=== PATIENT | female | born 1955 | race Caucasian/White ===

== ENCOUNTER 2017-02-09 10:26 | Inpatient (IN) | payer MEDICARE, MEDICAID ==
--- NOTE | 2017-02-09 10:48 | ER Document Report ---
ED Neuro Symptoms/Deficit - General Stated Complaint: RIGHT SIDE PAIN Time Seen by Provider: 02/09/17 10:33 Notes: Patient says that she was asleep and awakened about 2 AM and noted that she was weak on her right side and it did not seem to want to work. She fell back asleep but reawakened at about 5 AM. She tried to get out of the bed and fell because she could not walk due to the weakness of the right side. She also noted that her right face felt weak and numb. Relative says that she did not have any difficulty with her speech. Patient says she feels lightheaded. Said she had a small headache since she awakened this morning. Has not had any loss of consciousness. Still feels unsteady on her feet. Patient supposedly had a stroke about 5 years ago which caused her to have some problem with the vision and she had to wear eye patch for several weeks, but all of her symptoms from that episode had resolved. Patient thought that her symptoms might be due to anxiety as she does have a history of depression with anxiety. TRAVEL OUTSIDE OF THE [place] IN LAST 30 DAYS: No - Related Data Allergies/Adverse Reactions: No Known Allergies Allergy (Verified 02/09/17 10:56) Past Medical History - Social History Smoking Status: Unknown if Ever Smoked Cigarette use (# per day): No Family History: Reviewed & Not Pertinent - Past Medical History Cardiac Medical History: Reports: Hx Hypercholesterolemia, Hx Hypertension Denies: Hx Coronary Artery Disease Neurological Medical History: Reports: Hx Cerebrovascular Accident - See HPI Endocrine Medical History: Denies: Hx Diabetes Mellitus Type 1, Hx Diabetes Mellitus Type 2 Psychiatric Medical History: Reports: Hx Anxiety, Hx Depression Past Surgical History: Reports: Hx Section, Hx Cholecystectomy - Immunizations Hx Diphtheria, Pertussis, Tetanus Vaccination: Yes Review of Systems - Review of Systems Notes: REVIEW OF SYSTEMS: CONSTITUTIONAL : Denies fever. EENT: Denies eye, ear, nose or mouth or throat pain or other symptoms. CARDIOVASCULAR: Denies chest pain. RESPIRATORY: Denies cough, chest congestion, but has felt shortness of breath over the past couple of weeks. GASTROINTESTINAL: Denies abdominal pain or nausea, vomiting, or diarrhea. GENITOURINARY: Denies difficulty or painful urinating, urinary frequency, blood in urine. Patient was diagnosed with a urinary tract infection a couple of weeks ago and treated with a course of antibiotics. She is symptom-free now. MUSCULOSKELETAL: Denies back or neck pain. Denies joint pain or swelling. SKIN: Denies rash or skin lesions. NEUROLOGICAL: Denies LOC or altered mental status. Mild headache since awakening this morning. See HPI. PSYCHIATRIC: Acknowledges anxiety or stress and depression. ALL OTHER SYSTEMS REVIEWED AND NEGATIVE. Physical Exam - Vital signs Interpretation: Hypertensive - 187/92, Other - All other vital signs essentially normal. - Notes Notes: PHYSICAL EXAMINATION: GENERAL: Well-appearing, in no acute distress. Blood pressure modestly elevated HEAD: Atraumatic, normocephalic. No facial asymmetry. EYES: Pupils equal round and reactive to light, extraocular movements intact. ENT: oropharynx clear without exudates. Moist mucous membranes. NECK: Normal range of motion, supple. No carotid bruits heard. LUNGS: Breath sounds clear and equal bilaterally. Patient appears to be short of breath, especially after standing at the bedside. HEART: Regular rate and rhythm without murmurs. ABDOMEN: Soft, nontender. No guarding or rebound. No masses. BACK: No tenderness throughout entire back. EXTREMITIES: Normal range of motion without pain. NEUROLOGICAL: Normal speech. Patient can stand with assistance, but is unsteady on her feet and appears as if she might fall if not kept from doing so by help. Patient's right patellar reflex is decreased or absent while she has a normal, brisk left patellar reflex. Sensation seems to be intact. Patient can move all 4 extremities. Awake, alert, and oriented x3. Cranial nerves normal. PSYCH: Anxious but normal mood, normal affect. SKIN: Warm, dry, no rashes. Course - Re-evaluation Re-evalutation: 02/09/17 14:[address] of the brain showed an attenuated area in the region of the right cerebellum. They recommended an IV contrasted study which I ordered. They feel that this area and the cerebellum is most likely an old infarct. Patient' s chest x-ray shows some atelectasis but no other findings. Lab studies were all essentially normal. Patient continues to complain of feeling weak on the right side. Patient will be admitted for observation. - Laboratory Result Diagrams: 02/09/17 11:48 02/09/17 11:48 - Diagnostic Test Radiology reviewed: Image reviewed, Reports reviewed - CT scan of the brain shows decreased attenuation in the right cerebellum and they recommend an IV contrasted CT of the brain to rule out a pathologic lesion. IV contrasted study is felt to show an old infarct in the cerebellum. Radiology results interpreted by me: 02/09/17 12:06 Chest x-ray shows some basilar atelectasis but otherwise unremarkable. - EKG Interpretation by Ok EKG shows normal: Sinus rhythm Rate: Normal Rhythm: NSR Additional EKG results interpreted by me: 02/09/17 12:07 EKG is normal. Discharge - Discharge Clinical Impression: Stroke Condition: Stable Disposition: ADMITTED OBSERVATION Admitting Provider: Hospitalist Unit Admitted: IMCU Referrals: RITA JACKSON MD [Primary Care Provider] - Follow up as needed
--- NOTE | 2017-02-09 11:24 | RADIOLOGY REPORT (SQ) ---
EXAM DESCRIPTION: CT HEAD WITHOUT COMPLETED DATE/TIME: 02/09/2017 11:09 am REASON FOR STUDY: Numbness and weakness of right side COMPARISON: 02/02/2014 TECHNIQUE: Axial images acquired through the brain without intravenous contrast. Images reviewed wi th bone, brain and subdural windows. Images stored on PACS. All CT scanners at this facility use dose modulation, iterative reconstruction, and/or weight based d osing when appropriate to reduce radiation dose to as low as reasonably achievable (ALARA). [facility]: Dose Right [facility]: CareDose [facility]: Dose Right [facility]: Teradose 4D [facility]: [facility] Lab RADIATION DOSE: CT Rad equipment meets quality standard of care and radiation dose reduction techniq ues were employed. CTDIvol: 64.6 mGy. DLP: 1163 mGy-cm. mGy. LIMITATIONS: None. FINDINGS: VENTRICLES: Normal size and contour. CEREBRUM: No masses. No hemorrhage. No midline shift. No evidence for acute infarction. Normal gra y/white matter differentiation. No areas of low density in the white matter. CEREBELLUM: Vague areas of decreased attenuation right cerebellar hemisphere. Normal variant versus pathologic. EXTRAAXIAL SPACES: No fluid collections. No masses. ORBITS AND GLOBE: No intra- or extraconal masses. Normal contour of globe without masses. CALVARIUM: No fracture. PARANASAL SINUSES: No fluid or mucosal thickening. SOFT TISSUES: No mass or hematoma. OTHER: No other significant finding. IMPRESSION: Vague areas of decreased attenuation right cerebellum. Normal variant versus pathologic . Recommend repeat CT with IV contrast. Study is otherwise unremarkable. EVIDENCE OF ACUTE STROKE: NO. COMMENT: Quality ID # [id number]: Final reports with documentation of one or more dose reduction techniques (e.g., Automated exposure control, adjustment of the mA and/or kV according to patient size, use of iterative reconstruction technique) TECHNICAL DOCUMENTATION: JOB ID: [id number] [employer]- All Rights Reserved
--- NOTE | 2017-02-09 11:41 | RADIOLOGY REPORT (SQ) ---
EXAM DESCRIPTION: CHEST PA/LAT COMPLETED DATE/TIME: 02/09/2017 11:25 am REASON FOR STUDY: Shortness of breath COMPARISON: 02/02/2014 EXAM PARAMETERS: NUMBER OF VIEWS: two views TECHNIQUE: Digital Frontal and Lateral radiographic views of the chest acquired. RADIATION DOSE: NA LIMITATIONS: none FINDINGS: LUNGS AND PLEURA: Linear atelectatic markings seen both lung bases similar to earlier stud y. No developing confluent infiltrates. Chronic elevation right hemidiaphragm. MEDIASTINUM AND HILAR STRUCTURES: No masses or contour abnormalities. HEART AND VASCULAR STRUCTURES: Heart normal size. No evidence for failure. BONES: No acute findings. HARDWARE: None in the chest. OTHER: No other significant finding. IMPRESSION: Linear atelectatic markings both lung bases. Chronic elevation right hemidiaphragm. TECHNICAL DOCUMENTATION: JOB ID: [id number] [employer]- All Rights Reserved
[2017-02-09 11:48] LABS: APPEARANCE,URINE CLEAR; BILIRUBIN,URINE NEGATIVE (NEGATIVE); COLOR,URINE STRAW; GLUCOSE, URINE NEGATIVE (NEGATIVE); KETONES,URINE NEGATIVE (NEGATIVE); LEUKOCYTE ESTERASE,URINE NEGATIVE (NEGATIVE); NITRITE,URINE NEGATIVE (NEGATIVE); PROTEIN,URINE 30 mg/dL (NEGATIVE); URINE SPECIFIC GRAVITY 1.006; UROBILINOGEN,URINE NEGATIVE mg/dL (<2.0)
[2017-02-09] MEDS ORDERED: LORAZEPAM 1 MG TABLET PO ONE (11:59)
[2017-02-09 12:02] LABS: ABSOLUTE EOSINOPHILS # (AUTO) 0.2 10^3/uL (0.0-0.6); ABSOLUTE LYMPHOCYTES (AUTO) 1.5 10^3/uL (0.5-4.7); ABSOLUTE MONOCYTES (AUTO) 0.6 10^3/uL (0.1-1.4); ABSOLUTE NEUT (AUTO) 9.7 10^3/uL (1.7-8.2); BASOPHILS % (AUTO) 0.4 % (0-2); EOSINOPHILS % (AUTO) 1.5 % (0-6); HEMATOCRIT 41.3 % (36.0-47.0); LYMPHOCYTES % (AUTO) 12.5 % (13-45); MEAN CORPUSCULAR HEMOGLOBIN 30.6 pg (27.0-33.4); MEAN CORPUSCULAR HGB CONC 33.9 g/dL (32.0-36.0); MEAN CORPUSCULAR VOLUME 90 fl (80-97); MONOCYTES % (AUTO) 4.9 % (3-13); PLATELET COUNT 272 10^3/uL (150-450); RED BLOOD COUNT 4.57 10^6/uL (3.72-5.28); RED CELL DISTRIBUTION WIDTH 13.6 % (11.5-14.0); SEGMENTED NEUTROPHILS % (AUTO) 80.7 % (42-78); TOTAL CELLS COUNTED % (AUTO) 100 %
[2017-02-09 12:18] LABS: ALANINE AMINOTRANSFERASE 30 U/L (9-52); ALBUMIN 4.5 g/dL (3.5-5.0); ALKALINE PHOSPHATASE 135 U/L (38-126); ANION GAP 12 (5-19); ASPARTATE AMINO TRANSFERASE 42 U/L (14-36); BILIRUBIN,DIRECT 0.2 mg/dL (0.0-0.4); BILIRUBIN,TOTAL 0.7 mg/dL (0.2-1.3); BLOOD UREA NITROGEN 14 mg/dL (7-20); CALCIUM 9.6 mg/dL (8.4-10.2); CARBON DIOXIDE 26 mmol/L (22-30); CHLORIDE 100 mmol/L (98-107); GLUCOSE 122 mg/dL (75-110); POTASSIUM 4.4 mmol/L (3.6-5.0); SODIUM 138.4 mmol/L (137-145); TOTAL PROTEIN 7.2 g/dL (6.3-8.2)
[2017-02-09 12:30] LABS: CREATINE KINASE MB 3.19 ng/mL (<4.55); TROPONIN I 0.016 ng/mL
--- NOTE | 2017-02-09 13:13 | RADIOLOGY REPORT (SQ) ---
EXAM DESCRIPTION: CT HEAD WITH COMPLETED DATE/TIME: 02/09/2017 12:56 pm REASON FOR STUDY: ? Right cerebellar lesion COMPARISON: Noncontrast CT dated 02/09/2017 and 02/02/2014. TECHNIQUE: Axial images acquired through the brain with intravenous contrast. Images reviewed with b one, brain and subdural windows. Images stored on PACS. All CT scanners at this facility use dose modulation, iterative reconstruction, and/or weight based d osing when appropriate to reduce radiation dose to as low as reasonably achievable (ALARA). [facility]: Dose Right [facility]: CareDose [facility]: Dose Right [facility]: Teradose 4D [facility]: [employer]ighters CONTRAST TYPE AND DOSE: contrast/concentration: Isovue 370.00 mg/ml; Total Contrast Delivered: 50.0 ml; Total Saline Delivered: 32.0 ml RENAL FUNCTION: BUN 14 creatinine 0.83. RADIATION DOSE: CT Rad equipment meets quality standard of care and radiation dose reduction techniq ues were employed. CTDIvol: 64.6 mGy. DLP: 1163 mGy-cm.. LIMITATIONS: None. FINDINGS: VENTRICLES: Normal size and contour. CEREBRUM: No masses. No hemorrhage. No midline shift. A few areas of low density in the white matter most likely due to chronic micro-vascular ischemic change. No evidence for acute infarction. No abnor mal enhancement. CEREBELLUM: No masses. No hemorrhage. Wedge-shaped area of decreased attenuation in the right cereb ellar hemisphere. No enhancement. No evidence for acute infarction. EXTRAAXIAL SPACES: Mild age-related involutional change. No fluid collections. No masses. ORBITS AND GLOBE: No intra- or extraconal masses. Normal contour of globe without masses. CALVARIUM: No fracture. PARANASAL SINUSES: No fluid or mucosal thickening. SOFT TISSUES: No mass or hematoma. OTHER: No other significant finding. IMPRESSION: MILD CHRONIC CHANGES OF ATROPHY AND MICROVASCULAR ISCHEMIA. NO ABNORMAL AREAS OF ENHAN CEMENT. WEDGE-SHAPED AREA OF DECREASED ATTENUATION IN THE RIGHT CEREBELLAR HEMISPHERE IS MOST LIKELY DUE TO AN OLD INFARCT. NO DEFINITE ACUTE FINDINGS. EVIDENCE OF ACUTE STROKE: NO. TECHNICAL DOCUMENTATION: JOB ID: [id number]: Final reports with documentation of one or more dose reduction techniques (e.g., Automate d exposure control, adjustment of the mA and/or kV according to patient size, use of iterative recons truction technique) 2010 [employer]- All Rights Reserved
[2017-02-09] MEDS ORDERED: ASPIRIN 81 MG TABLET, CHEWABLE PO ONE (14:07)
[2017-02-09] MEDS ORDERED: LABETALOL HCL INJ 20 MG/4 ML DISP.SYRIN IV PRN (14:41)
[2017-02-09] MEDS ORDERED: ONDANSETRON HCL INJ/PF 4 MG/2 ML SDV IV PRN (14:41)
[2017-02-09] MEDS ORDERED: NORMAL SALINE 1000 ML 1,000 ML IV PRN (14:41)
[2017-02-09] MEDS ORDERED: DOCUSATE SODIUM 100 MG CAPSULE PO PRN (14:46)
[2017-02-09] MEDS ORDERED: ZOLPIDEM TARTRATE 5 MG TABLET PO PRN (15:08)
[2017-02-09] MEDS ORDERED: TIZANIDINE HCL 4 MG TABLET PO PRN (15:08)
--- NOTE | 2017-02-09 15:49 | PDOC H&P ---
History of Present Illness Admission Date/PCP: 02/09/17 14:46 RITA JACKSON MD Patient complains of: Right sided weakness, multiple falls History of Present Illness: SHUBHAM AQUINO is a 61 year old female a past medical history of hypertension, hyperlipidemia, TIA, prediabetes, anxiety who presented to the emergency department today with a complaint of right-sided weakness leading to multiple falls. She reports that she went to bed in her normal health last night and woke at approximately 2 AM. She states that upon waking she found that the right side of her face felt numb and that she had trouble ambulating to the related to right-sided weakness leading to a fall. She went back to sleep and woke again at approximately 6 AM noting that she continues to have right-sided weakness but again but to a fall while in the tub. She reports slight right shoulder discomfort with range of motion, denies other injuries from her fall. She denies hitting her head, LOC. As report paresthesias to her right hand and right lower leg, stating that she does have sensation that it is abnormal. Daughter reports to me that she was evaluated for a CVA approximately 4 years ago in our emergency department. The states that the patient became apneic while in the CT room and required intubation and was flown to [facility]. The daughter states that they were told that her related to alcohol abuse. The patient states that she is no longer drinking to that extent, but did have 4 beers last night. She states that this is more than her norm and that she no longer drinks on a daily basis. Admits to being under increased emotional stress as her son is deploying to [place] this week. She is referred to the hospitalist service for observational admission and CVA workup. Past Medical History Cardiac Medical History: Reports: Hyperlipidema, Hypertension Denies: Coronary Artery Disease Pulmonary Medical History: Reports: Intubation, Respiratory Failure Denies: Chronic Obstructive Pulmonary Disease (COPD), Pneumonia EENT Medical History: Reports: None Neurological Medical History: Reports: Migraine Denies: Hemorrhagic CVA, Ischemic CVA, Multiple Sclerosis, Seizures Endocrine Medical History: Denies: Diabetes Mellitus Type 1, Diabetes Mellitus Type 2, Hyperthyroidism Renal/ Medical History: Denies: Chronic Kidney Disease, End Stage Renal Disease Malignancy Medical History: Reports: None GI Medical History: Reports: None Musculoskeltal Medical History: Reports: None Skin Medical History: Reports: None Psychiatric Medical History: Reports: Depression, General Anxiety Disorder, Other - Alcohol abuse Traumatic Medical History: Reports: None Hematology: Reports: None Infectious Medical History: Reports: None Past Surgical History Past Surgical History: Reports: Section, Cholecystectomy, Orthopedic Surgery - Lt shoulder Social History Information Source: Patient Lives with: Alone Smoking Status: Former Smoker Frequency of Alcohol Use: Social Amount of Alcoholic Beverages Per Day: Hx EtOH abuse/dependence Hx Recreational Drug Use: No Hx Prescription Drug Abuse: No - Advance Directive Resuscitation Status: Full Code Family History Family History: Reviewed & Not Pertinent, Other - Crohns dz Parental Family History Reviewed: Yes Children Family History Reviewed: Yes Sibling(s) Family History Reviewed.: Yes Medication/Allergy Home Medications: Atorvastatin Calcium [Lipitor 40 mg Tablet] 40 mg PO DAILY 02/09/17 Buspirone HCl [Buspar 30 mg Tablet] 30 mg PO BID 02/09/17 Clonidine HCl [Catapres 0.1 mg Tablet] 0.1 mg PO NOON 02/09/17 Clonidine HCl [Catapres 0.1 mg Tablet] 0.1 mg PO QAM 02/09/17 Clonidine HCl [Catapres 0.1 mg Tablet] 0.2 mg PO QHS 02/09/17 Paroxetine HCl [Paxil] 30 mg PO DAILY 02/09/17 Tizanidine HCl [Zanaflex 4 mg Tablet] 4 mg PO BID 02/09/17 Trazodone HCl [Desyrel 50 mg Tablet] 50 mg PO QHS 02/09/17 Zolpidem Tartrate [Ambien 5 mg Tablet] 5 mg PO HSP PRN 02/09/17 Allergies/Adverse Reactions: No Known Allergies Allergy (Verified 02/09/17 10:56) Review of Systems Constitutional: PRESENT: weakness - Rt side. ABSENT: chills, fever(s), headache (s), weight gain, weight loss Eyes: ABSENT: visual disturbances Ears: ABSENT: hearing changes Nose, Mouth, and Throat: ABSENT: headache(s), vertigo Cardiovascular: ABSENT: chest pain, dyspnea on exertion, edema, orthropnea, palpitations Respiratory: ABSENT: cough, hemoptysis Gastrointestinal: ABSENT: abdominal pain, constipation, diarrhea, hematemesis, hematochezia, nausea, vomiting Genitourinary: ABSENT: dysuria, hematuria Musculoskeletal: ABSENT: joint swelling Integumentary: ABSENT: rash, wounds Neurological: PRESENT: frequent falls - x2 last night, paresthesias - RLE. ABSENT: abnormal gait, abnormal speech, confusion, dizziness, focal weakness, syncope Psychiatric: PRESENT: anxiety, depression. ABSENT: homidical ideation, suicidal ideation Endocrine: ABSENT: cold intolerance, heat intolerance, polydipsia, polyuria Hematologic/Lymphatic: ABSENT: easy bleeding, easy bruising Physical Exam Vital Signs: Temp Pulse Resp BP Pulse Ox 97.7 F 82 24 H 157/91 H 95 02/09/17 10:30 02/09/17 10:30 02/09/17 12:25 02/09/17 12:25 02/09/17 12:25 General appearance: PRESENT: no acute distress, obese, well-developed, well- nourished Head exam: PRESENT: atraumatic, normocephalic Eye exam: PRESENT: conjunctiva pink, EOMI, PERRLA. ABSENT: scleral icterus Ear exam: PRESENT: normal external ear exam Mouth exam: PRESENT: moist, tongue midline Neck exam: ABSENT: carotid bruit, JVD, lymphadenopathy, thyromegaly Respiratory exam: PRESENT: clear to auscultation hiren, symmetrical, unlabored. ABSENT: rales, rhonchi, tachypnea, wheezes Cardiovascular exam: PRESENT: RRR, +S1, +S2. ABSENT: diastolic murmur, rubs, systolic murmur Pulses: PRESENT: normal dorsalis pedis pul Vascular exam: PRESENT: normal capillary refill GI/Abdominal exam: PRESENT: normal bowel sounds, soft. ABSENT: distended, guarding, mass, organolmegaly, rebound, tenderness Rectal exam: PRESENT: deferred Extremities exam: PRESENT: full ROM. ABSENT: calf tenderness, clubbing, pedal edema Neurological exam: PRESENT: alert, awake, oriented to person, oriented to place , oriented to time, oriented to situation, ataxia, CN II-XII grossly intact. ABSENT: motor sensory deficit Psychiatric exam: PRESENT: anxious, appropriate affect, normal mood. ABSENT: homicidal ideation, suicidal ideation Skin exam: PRESENT: dry, intact, warm. ABSENT: cyanosis, rash Results Impressions: Chest X-Ray 02/09/17 10:49 IMPRESSION: Linear atelectatic markings both lung bases. Chronic elevation right hemidiaphragm. Head CT 02/09/17 12:05 IMPRESSION: MILD CHRONIC CHANGES OF ATROPHY AND MICROVASCULAR ISCHEMIA. NO ABNORMAL AREAS OF ENHANCEMENT. WEDGE-SHAPED AREA OF DECREASED ATTENUATION IN THE RIGHT CEREBELLAR HEMISPHERE IS MOST LIKELY DUE TO AN OLD INFARCT. NO DEFINITE ACUTE FINDINGS. EVIDENCE OF ACUTE STROKE: NO. Assessment & Plan - Diagnosis (1) TIA (transient ischemic attack) Qualifiers: Transient cerebral ischemia type: unspecified Qualified Code(s): G45.9 - Transient cerebral ischemic attack, unspecified Is this a current diagnosis for this admission?: Yes Plan: The patient is admitted with of right-sided paresthesias and weakness first noted at 2 AM and leading to multiple falls. She reports a sensation of right facial paresthesia as well. The symptoms do seem to wax and wane but are never resolved entirely. History of previous TIA. She does admit to having drank 4 beers last night which he states is more than her normal, however, does endorse a history of alcohol abuse and dependence. Will admit to [facility] under observational status on continuous cardiac telemetry. She will remain n.p.o. until swallow evaluation is complete. We will start full dose aspirin, Plavix, high-dose atorvastatin. Obtain a head MRI, Doppler, echocardiogram. Appreciate PT/OT evaluation recommendations. Will ask discharge planning to evaluate for needs. (2) HTN (hypertension) Is this a current diagnosis for this admission?: Yes Plan: We will allow for permissive hypertension. We will continue the patient's home medication regimen. IV Labetalol is available as needed. (3) Leukocytosis Qualifiers: Leukocytosis type: unspecified Qualified Code(s): D72.829 - Elevated white blood cell count, unspecified Plan: Unclear etiology; the pt denies acute infectious symptoms. May be an inflammatory response related to TIA/CVA. Will monitor. No indications for antibiotics at this time. (4) Anxiety Is this a current diagnosis for this admission?: Yes Plan: We will continue patient's home medication regimen. We will have Valium available hematology oncology consultant for MRI. (5) Depression Is this a current diagnosis for this admission?: Yes Plan: We will continue the patient's home medications. (6) Alcohol abuse Is this a current diagnosis for this admission?: Yes Plan: The patient does report a history of alcohol abuse that did lead to her requiring to be intubated and flown to an [facility] approximately 4 years ago. She states that she is no longer drinking liquor but does continue to occasionally have beer. She denies daily use. She does state that she drank 4 beers last night. We will monitor closely for signs and symptoms of alcohol withdrawal. - Time Time Spent: 50 to 70 Minutes Medications reviewed and adjusted accordingly: Yes
[2017-02-09] MEDS ORDERED: INFLUENZA ADLT QUAD (36MOS+) 2017-18 VAC 0.5 ML SYR IM PRN (17:28)
[2017-02-09] MEDS ORDERED: (PENDING PHARMACY ID) (Buspirone Hcl [Buspar 30 Mg Tablet] 30 MG) PO SCH (18:00)
[2017-02-09] MEDS: ACETAMINOPHEN 325 MG TABLET PO PRN (18:30)
[2017-02-09] MEDS: LORAZEPAM INJ 2 MG/1 ML VIAL IV PRN (20:12)
--- NOTE | 2017-02-09 21:45 | RADIOLOGY REPORT (SQ) ---
EXAM DESCRIPTION: MRI HEAD COMBO COMPLETED DATE/TIME: 02/09/2017 9:04 pm REASON FOR STUDY: Right side weakness, falls, ?CVA COMPARISON: CT brain 02/02/2014, 02/09/2017 TECHNIQUE: Multiplanar imaging includes noncontrasted T1, T2, FLAIR, diffusion with ADC map and post gadolinium contrast T1 sequences. Images stored on PACS. CONTRAST TYPE AND DOSE: 20 mL Multihance. RENAL FUNCTION: GFR > 60. LIMITATIONS: Motion artifact FINDINGS: ANATOMY: No congenital anomalies. Grossly normal flow voids in the dural venous sinuses. Empty sella, an anatomic variant. CSF SPACES: Normal in size and contour. No hemorrhage. CEREBRUM AND CEREBELLUM: There is an old right cerebellar infarct. Old chronic appearing lacunar inf arcts in the midline rayray, left thalamus, bilateral basal ganglia and bifrontal and biparietal white matter. No mass effect or midline shift. No hemorrhage. Internal auditory canals/inner ear structures are n ormal DIFFUSION IMAGING: Negative for acute or subacute infarction. ORBITS: No masses. Globes normal. PARANASAL SINUSES: No fluid levels. Mucosa normal. OTHER: No other significant finding. IMPRESSION: No acute findings Old right cerebellar infarct Multiple infarcts in the basal ganglia left thalamus midline rayray and bifrontal/biparietal white annemarie er, all chronic in appearance EVIDENCE OF ACUTE STROKE: NO. TECHNICAL DOCUMENTATION: JOB ID: [id number]- All Rights Reserved
[2017-02-09] MEDS ORDERED: TRAZODONE HCL 50 MG TABLET PO SCH (22:00)
[2017-02-09] MEDS: FAMOTIDINE INJ/PF 20 MG/2 ML SDV IV SCH (22:09)
[2017-02-09] MEDS: HEPARIN SOD (PORCINE) 5,000 UNIT/ML 1 ML SYRINGE SUBCUT SCH (22:09)
[2017-02-09] MEDS: ATORVASTATIN CALCIUM 80 MG TABLET PO SCH (22:10)
[2017-02-09] MEDS: BUSPIRONE HCL 10 MG TABLET PO SCH (22:10)
[2017-02-09] MEDS: CLONIDINE HCL 0.1 MG TABLET PO SCH (22:11)
[2017-02-09 23:21] LABS: APPEARANCE,URINE CLOUDY; BILIRUBIN,URINE NEGATIVE (NEGATIVE); COLOR,URINE YELLOW; GLUCOSE, URINE NEGATIVE (NEGATIVE); KETONES,URINE NEGATIVE (NEGATIVE); LEUKOCYTE ESTERASE,URINE LARGE (NEGATIVE); NITRITE,URINE NEGATIVE (NEGATIVE); PROTEIN,URINE NEGATIVE (NEGATIVE); URINE SPECIFIC GRAVITY 1.021; UROBILINOGEN,URINE NEGATIVE mg/dL (<2.0)
[2017-02-10] MEDS: LORAZEPAM INJ 2 MG/1 ML VIAL IV PRN ×5 (00:30→20:31)
[2017-02-10] MEDS: ACETAMINOPHEN 325 MG TABLET PO PRN (00:39)
[2017-02-10] MEDS ORDERED: METOPROLOL TARTRATE PF/INJ 5 MG/5 ML SDV IV ONE ×2 (02:55→03:15)
[2017-02-10 03:22] LABS: HEMATOCRIT 40.2 % (36.0-47.0); HEMOGLOBIN 13.6 g/dL (12.0-15.5); MEAN CORPUSCULAR HEMOGLOBIN 30.6 pg (27.0-33.4); MEAN CORPUSCULAR HGB CONC 33.8 g/dL (32.0-36.0); MEAN CORPUSCULAR VOLUME 90 fl (80-97); PLATELET COUNT 248 10^3/uL (150-450); RED BLOOD COUNT 4.44 10^6/uL (3.72-5.28); RED CELL DISTRIBUTION WIDTH 13.4 % (11.5-14.0); WHITE BLOOD COUNT 10.2 10^3/uL (4.0-10.5)
[2017-02-10 03:33] LABS: ANION GAP 14 (5-19); BLOOD UREA NITROGEN 18 mg/dL (7-20); CALCIUM 9.5 mg/dL (8.4-10.2); CARBON DIOXIDE 24 mmol/L (22-30); CHLORIDE 104 mmol/L (98-107); CREATINE KINASE 116 U/L (30-135); GLUCOSE 132 mg/dL (75-110); POTASSIUM 3.9 mmol/L (3.6-5.0)
[2017-02-10 03:45] LABS: CREATINE KINASE MB 3.05 ng/mL (<4.55); TROPONIN I 0.027 ng/mL
[2017-02-10 04:10] LABS: CHOLESTEROL 134.65 mg/dL (0-200); TRIGLYCERIDES 258 mg/dL (<150)
[2017-02-10 04:21] LABS: DIRECT LDL 54 mg/dL (<100)
[2017-02-10 04:22] LABS: VLDL CHOLESTEROL 51.6 mg/dL (10-31)
[2017-02-10] MEDS: HEPARIN SOD (PORCINE) 5,000 UNIT/ML 1 ML SYRINGE SUBCUT SCH ×2 (06:04→14:54)
[2017-02-10 09:24] LABS: CREATINE KINASE MB 3.31 ng/mL (<4.55); TROPONIN I 0.026 ng/mL
[2017-02-10] MEDS ORDERED: CLOPIDOGREL BISULFATE 75 MG TABLET PO SCH (10:00)
[2017-02-10] MEDS ORDERED: (PENDING PHARMACY ID) (Paroxetine Hcl [Paxil] 30 MG) PO SCH (10:00)
--- NOTE | 2017-02-10 10:26 | EKG REPORT ---
SEVERITY:- BORDERLINE ECG - SINUS RHYTHM PROBABLE LEFT ATRIAL ABNORMALITY : Confirmed by: Jerrod Garcia 10-Feb-2017 10:26:12
--- NOTE | 2017-02-10 10:26 | EKG REPORT ---
SEVERITY:- ABNORMAL ECG - ATRIAL FIBRILLATION PROBABLE LVH WITH SECONDARY REPOL ABNRM : Confirmed by: Jerrod Garcia 10-Feb-2017 10:26:08
[2017-02-10] MEDS: BUSPIRONE HCL 10 MG TABLET PO SCH (10:32)
[2017-02-10] MEDS: PAROXETINE HCL 20 MG TABLET PO SCH (10:32)
[2017-02-10] MEDS: FAMOTIDINE INJ/PF 20 MG/2 ML SDV IV SCH ×2 (10:32→21:30)
[2017-02-10] MEDS: CLONIDINE HCL 0.1 MG TABLET PO SCH ×3 (10:36→21:30)
[2017-02-10] MEDS: ASPIRIN 325 MG TABLET, ENT COATED PO SCH (10:42)
[2017-02-10 12:13] LABS: ALANINE AMINOTRANSFERASE 29 U/L (9-52); ALKALINE PHOSPHATASE 113 U/L (38-126); ASPARTATE AMINO TRANSFERASE 40 U/L (14-36); BILIRUBIN,DIRECT 0.2 mg/dL (0.0-0.4); BILIRUBIN,TOTAL 0.7 mg/dL (0.2-1.3); TOTAL PROTEIN 6.4 g/dL (6.3-8.2)
[2017-02-10] MEDS: DIAZEPAM 5 MG TABLET PO SCH ×3 (12:45→23:18)
--- NOTE | 2017-02-10 13:24 | RADIOLOGY REPORT (SQ) ---
EXAM DESCRIPTION: CAROTID DOPPLER COMPLETED DATE/TIME: 02/10/2017 12:07 pm REASON FOR STUDY: CVA workup; rt side weakness/falls G45.9 TRANSIENT CEREBRAL ISCHEMIC ATTACK, UNSP ECIFIED COMPARISON: MRI brain 02/09/2017 CT brain 02/09/2017 TECHNIQUE: Grayscale ultrasound, Doppler velocity and spectra, and color Doppler images acquired of the extra-cranial carotid and vertebral arteries. Images stored on PACS. LIMITATIONS: None. FINDINGS: RIGHT CAROTID CCA Velocities: Within normal limits. ICA Velocities Peak systolic 0.36 m/s. End diastolic 0.12 m/s. Proximal ICA/CCA peak systolic ratio 0.9. Spectra normal. No significant plaque. LEFT CAROTID CCA Velocities: Within normal limits. ICA Velocities Peak systolic 0.53 m/s. End diastolic 0.2 m/s. Proximal ICA/CCA peak systolic ratio 0.8. Spectra normal. No significant plaque. VERTEBRAL ARTERIES: Antegrade flow. Normal waveforms. SUBCLAVIAN ARTERIES: Not evaluated OTHER: No other significant finding. IMPRESSION: NO HEMODYNAMICALLY SIGNIFICANT STENOSIS. COMMENT: Quality ID #[id number]: Velocity criteria are extrapolated from the diameter data as defined by t he Society of Radiologists in Ultrasound Consensus Conference. Radiology 2003: 229; 340-346. TECHNICAL DOCUMENTATION: JOB ID: [id number] [employer]- All Rights Reserved
--- NOTE | 2017-02-10 13:52 | XCELERA REPORT ---
[address] [address] Transthoracic Echocardiogram Report Name: SHUBHAM AQUINO Age: 61 yrs Gender: Female : 1955 Patient Status: Inpatient Patient Location: [address] [place] [address] Study Date: 02/10/2017 10:36 AM Height: 65 in Weight: 240 lb BSA: 2.1 m2 Procedure: A complete two-dimensional transthoracic echocardiogram was performed (2D, M-mode, spectral and color flow Doppler). The study was technically difficult with many images being suboptimal in quality. Reason For Study: CVA workup; rt side weakness/falls Ordering Physician: LAKSHMI QUIJANOC Performed By: Samantha King Interpretation Summary The left ventricular ejection fraction is normal. There is mild concentric left ventricular hypertrophy. The left ventricle is grossly normal size. Wall motion cannot be accurately commented on, but no definite regional wall motion abnormalities noted. Borderline right ventricular enlargement. The right ventricular systolic function is normal. The right atrium is borderline dilated. The left atrium is moderately dilated. There is a trace amount of mitral regurgitation There is no mitral valve stenosis. There is no aortic valve stenosis No aortic regurgitation is present. There is no tricuspid stenosis. No tricuspid regurgitation. The aortic root is not well visualized. The inferior vena cava was not well visualized There is no pericardial effusion. MMode/2D Measurements & Calculations RVDd: 2.5 cm LVIDd: 3.2 cm FS: 41.9 % Ao root diam: 3.1 cm IVSd: 2.2 cm LVIDs: 1.9 cm EDV(Teich): 41.0 ml LVPWd: 2.2 cm ESV(Teich): 10.6 ml Ao root area: 7.6 cm2 EF(Teich): 74.2 % Doppler Measurements & Calculations MV E max wei: MV dec slope: Ao V2 max: LV V1 max P.6 cm/sec 145.7 cm/sec 3.2 mmHg 513.0 cm/sec2 Ao max PG: LV V1 max: MV dec time: 8.5 mmHg 88.8 cm/sec 0.22 sec PA V2 max: PI end-d wei: 103.1 cm/sec 107.6 cm/sec PA max P.3 mmHg Left Ventricle The left ventricle is grossly normal size. There is mild concentric left ventricular hypertrophy. The left ventricular ejection fraction is normal. LV diastolic function could not be adequately assessed due to atrial fibrilation. Wall motion cannot be accurately commented on, but no definite regional wall motion abnormalities noted. Right Ventricle Borderline right ventricular enlargement. There is normal right ventricular wall thickness. The right ventricular systolic function is normal. Atria The right atrium is borderline dilated. The left atrium is moderately dilated. Interarterial septum not well visualized and not well dopplered. Cannot comment on ASD/PFO presence. Mitral Valve The mitral valve is grossly normal. There is no mitral valve stenosis. There is a trace amount of mitral regurgitation. Aortic Valve The aortic valve is grossly normal. There is no aortic valve stenosis. No aortic regurgitation is present. Tricuspid Valve The tricuspid valve is not well visualized secondary to technical limitations. There is no tricuspid stenosis. No tricuspid regurgitation. Pulmonic Valve The pulmonic valve is not well visualized. Great Vessels The aortic root is not well visualized. The inferior vena cava was not well visualized. Effusions There is no pericardial effusion. Incidental Findings No definite cardiac source of CVA/TIA noted on this particular trans- thoracic study. Consider FELICIA if clinically indicated. May consider mobile cardiac telemetry monitoring (MCT) for ruling out transient AFIB. : WON QUIJANO > Jerrod Garcia
[2017-02-10] MEDS: DILTIAZEM HCL 30 MG TABLET PO SCH ×2 (14:54→21:30)
[2017-02-10 16:05] LABS: CREATINE KINASE MB 2.92 ng/mL (<4.55); TROPONIN I 0.021 ng/mL
--- NOTE | 2017-02-10 16:05 | PDOC PROGRESS REPORT ---
Subjective Progress Note for:: 02/10/17 Subjective:: The patient is seen on morning rounds for follow-up. She is found resting in bed comfortably on room air. She is visibly upset today, stating that she is confused as to why she has been brought into the hospital and repeatedly asks about her friends "pulling a prank on me." According to both the patient's daughter and nursing staff, the patient hallucinated bugs and spiders crawling across the seaman last night. She became very anxious and agitated; accidentally pulling out her IV this morning. She denies headache, dizziness, chest pain, dyspnea, orthopnea, abdominal pain, nausea vomiting or diarrhea. She continues to report facial numbness, however, the numbness is located to the left side of her face today as compared to the right side yesterday. She denies extremity weakness or paresthesias. I did ask her about her alcohol intake again today. The patient notes to having drank a 12 pack of beer over the last 3-4 days, "or possibly more" but cannot recall specifically. She does tell me that she has a history of significant alcohol dependence and abuse that was required her to be intubated; I am uncertain if that was due to an acute alcohol intoxication or due to an alcohol withdrawal process. She is reassured that her CVA work up has thus far been reassuring. She is encouraged to speak with nursing staff w/ regards to symptoms so that we can better manage her care. She has no other questions or concerns today. Reason For Visit: TIA,ENCEPHALOPATHY,ETOH WITHDRAWL Physical Exam Vital Signs: Temp Pulse Resp BP Pulse Ox 98.2 F 79 16 154/98 H 100 02/10/17 12:05 02/10/17 12:05 02/10/17 12:05 02/10/17 12:05 02/10/17 12:05 Intake & Output 02/09/17 02/10/17 02/11/17 06:59 06:59 06:59 Intake Total 473 Balance 473 Weight 111.7 kg General appearance: PRESENT: mild distress, obese, well-developed, well- nourished Head exam: PRESENT: atraumatic, normocephalic Eye exam: PRESENT: conjunctiva pink, EOMI, PERRLA. ABSENT: scleral icterus Ear exam: PRESENT: normal external ear exam Mouth exam: PRESENT: moist, tongue midline Teeth exam: PRESENT: poor dentation Neck exam: ABSENT: carotid bruit, JVD, lymphadenopathy, thyromegaly Respiratory exam: PRESENT: clear to auscultation hiren, symmetrical, unlabored. ABSENT: rales, rhonchi, wheezes Cardiovascular exam: PRESENT: irregular rhythm, +S1, +S2. ABSENT: diastolic murmur, rubs, systolic murmur Pulses: PRESENT: normal dorsalis pedis pul Vascular exam: PRESENT: normal capillary refill GI/Abdominal exam: PRESENT: normal bowel sounds, soft. ABSENT: distended, guarding, mass, organolmegaly, rebound, tenderness Rectal exam: PRESENT: deferred Extremities exam: PRESENT: full ROM. ABSENT: calf tenderness, clubbing, pedal edema Neurological exam: PRESENT: alert, awake, oriented to person, oriented to place , oriented to time, oriented to situation, CN II-XII grossly intact. ABSENT: motor sensory deficit Psychiatric exam: PRESENT: anxious, appropriate affect, other - Tearful. ABSENT : homicidal ideation, suicidal ideation Skin exam: PRESENT: dry, intact, warm. ABSENT: cyanosis, rash Results Laboratory Results: 02/10/17 02/10/17 11:38 11:38 Total Bilirubin 0.7 AST 40 H ALT 29 Alkaline Phosphatase 113 Ammonia < 8.7 L Total Protein 6.4 Albumin 4.0 Impressions: Chest X-Ray 02/09/17 10:49 IMPRESSION: Linear atelectatic markings both lung bases. Chronic elevation right hemidiaphragm. Head CT 02/09/17 12:05 IMPRESSION: MILD CHRONIC CHANGES OF ATROPHY AND MICROVASCULAR ISCHEMIA. NO ABNORMAL AREAS OF ENHANCEMENT. WEDGE-SHAPED AREA OF DECREASED ATTENUATION IN THE RIGHT CEREBELLAR HEMISPHERE IS MOST LIKELY DUE TO AN OLD INFARCT. NO DEFINITE ACUTE FINDINGS. EVIDENCE OF ACUTE STROKE: NO. Head MRI 02/09/17 14:44 IMPRESSION: No acute findings Old right cerebellar infarct Multiple infarcts in the basal ganglia left thalamus midline rayray and bifrontal/ biparietal white matter, all chronic in appearance EVIDENCE OF ACUTE STROKE: NO. Carotid Doppler Study 02/10/17 00:00 IMPRESSION: NO HEMODYNAMICALLY SIGNIFICANT STENOSIS. Assessment & Plan - Diagnosis (1) Atrial fibrillation Is this a current diagnosis for this admission?: Yes Plan: New onset atrial fibrillation in the setting of alcohol withdrawal. Echocardiogram was completed today without abnormal findings. The patient has been started on diltiazem. She is rate controlled. Will start the patient on Xarelto and continue full dose aspirin. (2) Alcohol withdrawal Is this a current diagnosis for this admission?: Yes Plan: The patient is admitted to [facility] on continuous cardiac telemetry. She will be placed on Valium every 6 hours with Ativan as needed for withdrawal/seizure. We will ask our social worker health services to meet with the patient to discuss outpatient intensive therapies, and inpatient rehabilitation, and community resources. We will institute fall, seizure, aspiration precautions. (3) TIA (transient ischemic attack) Qualifiers: Transient cerebral ischemia type: unspecified Qualified Code(s): G45.9 - Transient cerebral ischemic attack, unspecified Is this a current diagnosis for this admission?: Yes Plan: I am less convinced that the patient experienced a TIA/CVA, and instead is presenting with alcohol withdrawal symptoms. MRI confirms old right cerebellar infarct and multiple infarcts to the basal ganglia of the left thalamus midline rayray and bifrontal/biparietal white matter ; all chronic in appearance. Echocardiogram was completed today for abnormal findings. Carotid Doppler did not demonstrate any hemodynamically significant stenosis. Will admit to [facility] under observational status on continuous cardiac telemetry. Continue full dose aspirin and high-dose atorvastatin. Given the patient's new A. fib, will start Xarelto. Appreciate PT/OT evaluation recommendations. Will ask discharge planning to evaluate for needs. (4) HTN (hypertension) Is this a current diagnosis for this admission?: Yes Plan: We will continue the patient's home medication regimen. Have started the patient on diltiazem today for new onset atrial fibrillation. IV Labetalol is available as needed. (5) Leukocytosis Qualifiers: Leukocytosis type: unspecified Qualified Code(s): D72.829 - Elevated white blood cell count, unspecified Plan: Resolved. Unclear etiology; the pt denies acute infectious symptoms. No indications for antibiotics at this time. (6) Anxiety Is this a current diagnosis for this admission?: Yes Plan: We will continue patient's home medication regimen. No on scheduled Valium and as needed Ativan for withdrawal. (7) Depression Is this a current diagnosis for this admission?: Yes Plan: We will continue the patient's home medications. (8) Alcohol abuse Is this a current diagnosis for this admission?: Yes Plan: The patient does report a history of alcohol abuse that did lead to her requiring to be intubated and flown to an [facility] approximately 4 years ago. She states that she is no longer drinking liquor but does continue to occasionally have beer. She denies daily use. She does state that she drank 4 beers last night. Remaining plan as above. - Time Time Spent with patient: 25-34 minutes Medications reviewed and adjusted accordingly: Yes Anticipated discharge: Home Within: within 72 hours
[2017-02-10] MEDS ORDERED: RIVAROXABAN 10 MG TABLET PO SCH (17:00)
[2017-02-10] MEDS: RIVAROXABAN 10 MG TABLET PO SCH (18:13)
[2017-02-10] MEDS: ATORVASTATIN CALCIUM 80 MG TABLET PO SCH (21:30)
[2017-02-11] MEDS: LORAZEPAM INJ 2 MG/1 ML VIAL IV PRN ×5 (00:35→22:56)
[2017-02-11] MEDS: DILTIAZEM HCL 30 MG TABLET PO SCH ×4 (05:58→23:13)
[2017-02-11] MEDS: DIAZEPAM 5 MG TABLET PO SCH ×4 (05:58→23:12)
[2017-02-11 06:39] LABS: HEMATOCRIT 40.1 % (36.0-47.0); HEMOGLOBIN 13.3 g/dL (12.0-15.5); MEAN CORPUSCULAR HEMOGLOBIN 30.3 pg (27.0-33.4); MEAN CORPUSCULAR HGB CONC 33.2 g/dL (32.0-36.0); MEAN CORPUSCULAR VOLUME 91 fl (80-97); PLATELET COUNT 225 10^3/uL (150-450); RED CELL DISTRIBUTION WIDTH 13.4 % (11.5-14.0); WHITE BLOOD COUNT 8.4 10^3/uL (4.0-10.5)
[2017-02-11 06:53] LABS: ANION GAP 10 (5-19); BLOOD UREA NITROGEN 15 mg/dL (7-20); CALCIUM 9.2 mg/dL (8.4-10.2); CARBON DIOXIDE 26 mmol/L (22-30); CHLORIDE 104 mmol/L (98-107); GLUCOSE 112 mg/dL (75-110); POTASSIUM 4.3 mmol/L (3.6-5.0); SODIUM 139.9 mmol/L (137-145)
[2017-02-11] MEDS: CLONIDINE HCL 0.1 MG TABLET PO SCH ×3 (09:11→21:29)
[2017-02-11] MEDS: FAMOTIDINE INJ/PF 20 MG/2 ML SDV IV SCH ×2 (09:11→21:29)
[2017-02-11] MEDS: ASPIRIN 325 MG TABLET, ENT COATED PO SCH (09:11)
[2017-02-11] MEDS: PAROXETINE HCL 20 MG TABLET PO SCH (09:11)
[2017-02-11] MEDS: ACETAMINOPHEN 325 MG TABLET PO PRN ×2 (09:21→20:09)
--- NOTE | 2017-02-11 15:15 | PDOC PROGRESS REPORT ---
Subjective Progress Note for:: 02/11/17 Subjective:: The patient is seen on rounds for follow-up TIA and alcohol withdrawal. Found resting in bed comfortably. She is sleeping when I enter the room, but wakes easily when I say her name. She denies complaints at this time; denies headache , dizziness, chest pain, palpitations, dyspnea, orthopnea, abdominal pain, nausea vomiting and diarrhea. She does report occasional paresthesias to her bilateral feet with the right being greater than left described as "heaviness." She states that she is tired, but otherwise feels well. Per nursing the patient continued to have slight confusion and visual hallucinations yesterday afternoon but does have improved overnight. She remains disoriented but is more easily redirected today. She does have a sitter for safety. Reason For Visit: TIA,ENCEPHALOPATHY,ETOH WITHDRAWL Physical Exam Vital Signs: Temp Pulse Resp BP Pulse Ox 97.7 F 118 H 22 H 152/98 H 98 02/11/17 11:26 02/11/17 14:00 02/11/17 11:26 02/11/17 11:26 02/11/17 11:26 Intake & Output 02/10/17 02/11/17 02/12/17 06:59 06:59 06:59 Intake Total 2470 356 Balance 2470 356 Weight 112.6 kg General appearance: PRESENT: no acute distress, obese, well-developed, well- nourished Head exam: PRESENT: atraumatic, normocephalic Eye exam: PRESENT: conjunctiva pink, EOMI, PERRLA. ABSENT: scleral icterus Ear exam: PRESENT: normal external ear exam Mouth exam: PRESENT: moist, tongue midline Teeth exam: PRESENT: poor dentation Neck exam: ABSENT: carotid bruit, JVD, lymphadenopathy, thyromegaly Respiratory exam: PRESENT: clear to auscultation hiren, decreased breath sounds - Bibasilar; poor effort, symmetrical, unlabored. ABSENT: rales, rhonchi, wheezes Cardiovascular exam: PRESENT: RRR, +S1, +S2. ABSENT: diastolic murmur, rubs, systolic murmur Pulses: PRESENT: normal dorsalis pedis pul Vascular exam: PRESENT: normal capillary refill GI/Abdominal exam: PRESENT: normal bowel sounds, soft. ABSENT: distended, guarding, mass, organolmegaly, rebound, tenderness Rectal exam: PRESENT: deferred Extremities exam: PRESENT: full ROM. ABSENT: calf tenderness, clubbing, pedal edema Neurological exam: PRESENT: alert, awake, oriented to person, oriented to place , oriented to time, oriented to situation, CN II-XII grossly intact. ABSENT: motor sensory deficit Psychiatric exam: PRESENT: appropriate affect, normal mood. ABSENT: homicidal ideation, suicidal ideation Skin exam: PRESENT: dry, intact, warm. ABSENT: cyanosis, rash Results Laboratory Results: 02/11/17 06:05 02/11/17 06:05 02/11/17 02/11/17 06:05 06:05 WBC 8.4 RBC 4.40 Hgb 13.3 Hct 40.1 MCV 91 MCH 30.3 MCHC 33.2 RDW 13.4 Plt Count 225 Sodium 139.9 Potassium 4.3 Chloride 104 Carbon Dioxide 26 Anion Gap 10 BUN 15 Creatinine 0.78 Est GFR ( Amer) > 60 Est GFR (Non-Af Amer) > 60 Glucose 112 H Calcium 9.2 02/10/17 02/10/17 15:03 15:03 Creatine Kinase 95 CK-MB (CK-2) 2.92 Troponin I 0.021 Impressions: Chest X-Ray 02/09/17 10:49 IMPRESSION: Linear atelectatic markings both lung bases. Chronic elevation right hemidiaphragm. Head CT 02/09/17 12:05 IMPRESSION: MILD CHRONIC CHANGES OF ATROPHY AND MICROVASCULAR ISCHEMIA. NO ABNORMAL AREAS OF ENHANCEMENT. WEDGE-SHAPED AREA OF DECREASED ATTENUATION IN THE RIGHT CEREBELLAR HEMISPHERE IS MOST LIKELY DUE TO AN OLD INFARCT. NO DEFINITE ACUTE FINDINGS. EVIDENCE OF ACUTE STROKE: NO. Head MRI 02/09/17 14:44 IMPRESSION: No acute findings Old right cerebellar infarct Multiple infarcts in the basal ganglia left thalamus midline rayray and bifrontal/ biparietal white matter, all chronic in appearance EVIDENCE OF ACUTE STROKE: NO. Carotid Doppler Study 02/10/17 00:00 IMPRESSION: NO HEMODYNAMICALLY SIGNIFICANT STENOSIS. Assessment & Plan - Diagnosis (1) Atrial fibrillation Is this a current diagnosis for this admission?: Yes Plan: New onset atrial fibrillation in the setting of alcohol withdrawal. Echocardiogram was completed today without abnormal findings. The patient has been started on diltiazem; will increase dose today as a means hypertensive and occasionally tachycardic. Will start the patient on Xarelto and continue full dose aspirin. (2) Alcohol withdrawal Is this a current diagnosis for this admission?: Yes Plan: The patient is admitted to [facility] on continuous cardiac telemetry. Continue Valium every 6 hours with Ativan as needed for withdrawal/seizure. We will ask our high school social studies tutor to meet with the patient to discuss outpatient intensive therapies, and inpatient rehabilitation, and community resources. We will institute fall, seizure, aspiration precautions. Sitter for safety. (3) TIA (transient ischemic attack) Qualifiers: Transient cerebral ischemia type: unspecified Qualified Code(s): G45.9 - Transient cerebral ischemic attack, unspecified Is this a current diagnosis for this admission?: Yes Plan: I am less convinced that the patient experienced a TIA/CVA, and instead is presenting with alcohol withdrawal symptoms, although possibility of TIA remains. MRI confirms old right cerebellar infarct and multiple infarcts to the basal ganglia of the left thalamus midline rayray and bifrontal/biparietal white matter ; all chronic in appearance. Echocardiogram was completed today for abnormal findings. Carotid Doppler did not demonstrate any hemodynamically significant stenosis. Admit to [facility] on continuous cardiac telemetry. Continue full dose aspirin and high-dose atorvastatin. Given the patient's new A. fib, will start Xarelto. Appreciate PT/OT evaluation recommendations. Will ask discharge planning to evaluate for needs. (4) HTN (hypertension) Is this a current diagnosis for this admission?: Yes Plan: Likely worsened by alcohol withdrawal. We will continue the patient's home medication regimen. Have started the patient on diltiazem for new onset atrial fibrillation; will increase dose today. IV Labetalol is available as needed. (5) Leukocytosis Qualifiers: Leukocytosis type: unspecified Qualified Code(s): D72.829 - Elevated white blood cell count, unspecified Plan: Resolved. Unclear etiology; the pt denies acute infectious symptoms. No indications for antibiotics at this time. (6) Anxiety Is this a current diagnosis for this admission?: Yes Plan: We will continue patient's home medication regimen. Now on scheduled Valium and as needed Ativan for withdrawal. (7) Depression Is this a current diagnosis for this admission?: Yes Plan: We will continue the patient's home medications. (8) Alcohol abuse Is this a current diagnosis for this admission?: Yes Plan: Plan as above. - Time Time Spent with patient: 25-34 minutes Medications reviewed and adjusted accordingly: Yes
[2017-02-11] MEDS: RIVAROXABAN 10 MG TABLET PO SCH (17:29)
[2017-02-11] MEDS: ATORVASTATIN CALCIUM 80 MG TABLET PO SCH (21:29)
[2017-02-12] MEDS: LORAZEPAM INJ 2 MG/1 ML VIAL IV PRN ×3 (02:50→21:07)
[2017-02-12] MEDS: DIAZEPAM 5 MG TABLET PO SCH ×3 (05:11→17:48)
[2017-02-12] MEDS: DILTIAZEM HCL 30 MG TABLET PO SCH ×3 (05:12→17:48)
[2017-02-12] MEDS: CLONIDINE HCL 0.1 MG TABLET PO SCH ×3 (09:11→21:07)
[2017-02-12] MEDS: FAMOTIDINE INJ/PF 20 MG/2 ML SDV IV SCH ×2 (09:11→21:07)
[2017-02-12] MEDS: PAROXETINE HCL 20 MG TABLET PO SCH (09:11)
[2017-02-12] MEDS: ASPIRIN 325 MG TABLET, ENT COATED PO SCH (09:11)
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
--- NOTE | 2017-02-12 14:35 | Physician Advisory Note ---
Physician Advisor ProgressNote .: Pursuant to the plan for [facility], I have reviewed the medical record for this patient. Physician Advisor Statement: Please consider documenting, if you agree: 1. "Obesity with BMI 41" Thanks! CK
[2017-02-12] MEDS: RIVAROXABAN 10 MG TABLET PO SCH (17:48)
--- NOTE | 2017-02-12 18:54 | PSYCHOLOGICAL NOTE ---
Psych Note - Psych Note Psych Note: Reason for consult: alcohol abuse with possible underlying mental health illness Consent permissions: none given SHUBHAM AQUINO is a 61 year old female a past medical history of hypertension, hyperlipidemia, TIA, prediabetes, anxiety who presented to the emergency department today with a complaint of right-sided weakness leading to multiple falls. She has a history of alcohol abuse. The patient states that she is no longer drinking to that extent, but did have 4 beers last night. She states that this is more than her norm and that she no longer drinks on a daily basis. Patient disclosed she came to [facility] because she was "not coherent." She confirms that she has a history of alcoholism however denies drinking liquor and only drinking "once in a while." Patient states she did drink 4 or 5 cans of beer the evening before. Patient denies suicidal and homicidal ideation. She is unable to remember her provider's name but states that they are in [place]. She denies any inpatient psychiatric treatment in the past and she picks up her medications from [facility]. Chart review conducted: Attending physician is noted to ask the patient how much she drank The patient notes to having drank a 12 pack of beer over the last 3-4 days, "or possibly more" but cannot recall specifically. Head CT 02/09/17 12:05 IMPRESSION: MILD CHRONIC CHANGES OF ATROPHY AND MICROVASCULAR ISCHEMIA. NO ABNORMAL AREAS OF ENHANCEMENT. WEDGE-SHAPED AREA OF DECREASED ATTENUATION IN THE RIGHT CEREBELLAR HEMISPHERE IS MOST LIKELY DUE TO AN OLD INFARCT. NO DEFINITE ACUTE FINDINGS. Head MRI 02/09/17 14:44 IMPRESSION: No acute findings Old right cerebellar infarct Multiple infarcts in the basal ganglia left thalamus midline rayray and bifrontal/ biparietal white matter, all chronic in appearance 291.81 (F10.232) Alcohol Withdrawal with perceptual disturbances Impression/Plan: Patient is considered psychiatrically cleared. Patient has history of alcohol abuse and reports to continued drinking. Her presentation is congruent with alcohol withdrawal with perceptual disturbances. The Behavioral Health team recommends discontinuing Ativan and Valium and starting Depakote 500mg BID, Buspar 5 mg Qam and 10mg Qpm with Vistaril 50mg Q6 PRN. Given the Head CT and MRI results it is recommended to avoid benzodiazapines and antipsychotics. Dr. Harvey was consulted on the care and management of this patient.
[2017-02-12] MEDS: ATORVASTATIN CALCIUM 80 MG TABLET PO SCH (21:08)
[2017-02-13] MEDS: DILTIAZEM HCL 30 MG TABLET PO SCH ×5 (00:36→23:22)
[2017-02-13] MEDS: DIAZEPAM 5 MG TABLET PO SCH ×4 (00:37→21:07)
[2017-02-13] MEDS: CLONIDINE HCL 0.1 MG TABLET PO SCH ×3 (08:57→21:11)
[2017-02-13] MEDS: ASPIRIN 325 MG TABLET, ENT COATED PO SCH (09:00)
[2017-02-13] MEDS: PAROXETINE HCL 20 MG TABLET PO SCH (09:00)
[2017-02-13] MEDS: FAMOTIDINE INJ/PF 20 MG/2 ML SDV IV SCH ×2 (09:00→21:07)
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
[2017-02-13] MEDS: LORAZEPAM INJ 2 MG/1 ML VIAL IV PRN ×2 (17:03→23:24)
[2017-02-13] MEDS: RIVAROXABAN 10 MG TABLET PO SCH (17:04)
[2017-02-13] MEDS: ATORVASTATIN CALCIUM 80 MG TABLET PO SCH (21:07)
[2017-02-14] MEDS: DIAZEPAM 5 MG TABLET PO SCH ×3 (05:45→17:50)
[2017-02-14] MEDS: DILTIAZEM HCL 30 MG TABLET PO SCH ×3 (05:45→17:49)
[2017-02-14] MEDS: LORAZEPAM INJ 2 MG/1 ML VIAL IV PRN ×3 (06:31→22:01)
[2017-02-14] MEDS: ASPIRIN 325 MG TABLET, ENT COATED PO SCH (09:21)
[2017-02-14] MEDS: PAROXETINE HCL 20 MG TABLET PO SCH (09:21)
[2017-02-14] MEDS: FAMOTIDINE INJ/PF 20 MG/2 ML SDV IV SCH ×2 (09:22→22:02)
[2017-02-14] MEDS: CLONIDINE HCL 0.1 MG TABLET PO SCH ×3 (09:22→22:01)
[2017-02-14] MEDS: RIVAROXABAN 10 MG TABLET PO SCH (17:50)
[2017-02-14] MEDS: ATORVASTATIN CALCIUM 80 MG TABLET PO SCH (22:01)
[2017-02-15] MEDS: DILTIAZEM HCL 30 MG TABLET PO SCH ×3 (00:31→13:32)
[2017-02-15] MEDS: DIAZEPAM 5 MG TABLET PO SCH ×3 (00:33→13:32)
[2017-02-15] MEDS: CLONIDINE HCL 0.1 MG TABLET PO SCH ×2 (09:29→13:31)
[2017-02-15] MEDS: PAROXETINE HCL 20 MG TABLET PO SCH (09:30)
[2017-02-15] MEDS: ASPIRIN 325 MG TABLET, ENT COATED PO SCH (09:30)
[2017-02-15] MEDS: FAMOTIDINE INJ/PF 20 MG/2 ML SDV IV SCH (09:31)
[2017-02-15] MEDS: ACETAMINOPHEN 325 MG TABLET PO PRN (09:31)
--- NOTE | 2017-02-15 11:58 | PDOC PROGRESS REPORT ---
Subjective Progress Note for:: 02/14/17 Subjective:: The patient is seen resting in bed comfortably. She is sleeping when I enter the room but wakes easily. She states that she is feeling fine today. She has some concerns about managing her anxiety after discharge. She talks with me about this being the anniversary of both of her parents last year and that her son will be deployed with the [employer] within 1-2 weeks. She recognizes that these stressors likely increased her alcohol intake. She does tell me that she has previously attended AA and is willing to do so again in the future but at this time is not interested in inpatient rehabilitation. She denies headache, dizziness, chest pain, palpitations, dyspnea, paresthesias. She is appreciative of her care and has no questions or concerns at this time. Reason For Visit: TIA,ENCEPHALOPATHY,ETOH WITHDRAWL Physical Exam Vital Signs: Temp Pulse Resp BP Pulse Ox 97.8 F 71 18 148/87 H 93 02/15/17 07:35 02/15/17 07:35 02/15/17 07:35 02/15/17 07:35 02/15/17 07:35 Intake & Output 02/14/17 02/15/17 02/16/17 06:59 06:59 06:59 Intake Total 1871 800 Output Total 0 Balance 1871 800 Weight 111 kg 110.8 kg General appearance: PRESENT: no acute distress, obese, well-developed, well- nourished Head exam: PRESENT: atraumatic, normocephalic Eye exam: PRESENT: conjunctiva pink, EOMI, PERRLA. ABSENT: scleral icterus Ear exam: PRESENT: normal external ear exam Mouth exam: PRESENT: moist, tongue midline Neck exam: ABSENT: carotid bruit, JVD, lymphadenopathy, thyromegaly Respiratory exam: PRESENT: clear to auscultation hiren, symmetrical, unlabored. ABSENT: rales, rhonchi, wheezes Cardiovascular exam: PRESENT: RRR. ABSENT: diastolic murmur, rubs, systolic murmur Pulses: PRESENT: normal dorsalis pedis pul Vascular exam: PRESENT: normal capillary refill GI/Abdominal exam: PRESENT: normal bowel sounds, soft. ABSENT: distended, guarding, mass, organolmegaly, rebound, tenderness Rectal exam: PRESENT: deferred Extremities exam: PRESENT: full ROM. ABSENT: calf tenderness, clubbing, pedal edema Neurological exam: PRESENT: alert, awake, oriented to person, oriented to place , oriented to time, oriented to situation, CN II-XII grossly intact. ABSENT: motor sensory deficit Psychiatric exam: PRESENT: appropriate affect, normal mood. ABSENT: homicidal ideation, suicidal ideation Skin exam: PRESENT: dry, intact, warm. ABSENT: cyanosis, rash Results Laboratory Results: 02/11/17 06:05 02/11/17 06:05 02/10/17 02/10/17 15:03 15:03 Creatine Kinase 95 CK-MB (CK-2) 2.92 Troponin I 0.021 Impressions: Chest X-Ray 02/09/17 10:49 IMPRESSION: Linear atelectatic markings both lung bases. Chronic elevation right hemidiaphragm. Head CT 02/09/17 12:05 IMPRESSION: MILD CHRONIC CHANGES OF ATROPHY AND MICROVASCULAR ISCHEMIA. NO ABNORMAL AREAS OF ENHANCEMENT. WEDGE-SHAPED AREA OF DECREASED ATTENUATION IN THE RIGHT CEREBELLAR HEMISPHERE IS MOST LIKELY DUE TO AN OLD INFARCT. NO DEFINITE ACUTE FINDINGS. EVIDENCE OF ACUTE STROKE: NO. Head MRI 02/09/17 14:44 IMPRESSION: No acute findings Old right cerebellar infarct Multiple infarcts in the basal ganglia left thalamus midline rayray and bifrontal/ biparietal white matter, all chronic in appearance EVIDENCE OF ACUTE STROKE: NO. Carotid Doppler Study 02/10/17 00:00 IMPRESSION: NO HEMODYNAMICALLY SIGNIFICANT STENOSIS. Assessment & Plan - Diagnosis (1) Alcohol withdrawal Is this a current diagnosis for this admission?: Yes Plan: The patient is admitted to [facility] on continuous cardiac telemetry. We will begin weaning Valium today; continue Valium 2.5 mg, reduced from 5 mg, every 8 hours with Ativan as needed for withdrawal/seizure. We will ask our social security assessor to meet with the patient to discuss outpatient intensive therapies, and inpatient rehabilitation, and community resources. The patient states that she is attending AA meetings in the past and would be willing to resume this on discharge. Psychiatry has been consulted; appreciate their evaluation recommendations. We will continue fall, seizure, aspiration precautions. Sitter for safety. (2) Atrial fibrillation Is this a current diagnosis for this admission?: Yes Plan: New onset atrial fibrillation in the setting of alcohol withdrawal. Echocardiogram was completed without abnormal findings. The patient has been started on diltiazem; now rate controlled and converted back to normal sinus with improved blood pressures. Will continue on Xarelto and full dose aspirin. (3) TIA (transient ischemic attack) Qualifiers: Transient cerebral ischemia type: unspecified Qualified Code(s): G45.9 - Transient cerebral ischemic attack, unspecified Is this a current diagnosis for this admission?: Yes Plan: I am less convinced that the patient experienced a TIA/CVA, and instead presented with alcohol withdrawal symptoms/acute stress reaction, although strong possibility of TIA remains. MRI confirms old right cerebellar infarct and multiple infarcts to the basal ganglia of the left thalamus midline rayray and bifrontal/biparietal white matter ; all chronic in appearance. Echocardiogram was completed today for abnormal findings. Carotid Doppler did not demonstrate any hemodynamically significant stenosis. Admit to [facility] on continuous cardiac telemetry. Continue full dose aspirin and high-dose atorvastatin. Given the patient's new A. fib, she has been started on Xarelto. Appreciate PT/OT evaluation recommendations. Will ask discharge planning to evaluate for needs. (4) HTN (hypertension) Is this a current diagnosis for this admission?: Yes Plan: Improved; though remain elevated. Likely worsened by alcohol withdrawal. We will continue the patient's home medication regimen. Have started the patient on diltiazem for new onset atrial fibrillation. IV Labetalol is available as needed. (5) Leukocytosis Qualifiers: Leukocytosis type: unspecified Qualified Code(s): D72.829 - Elevated white blood cell count, unspecified Plan: Resolved. Unclear etiology; the pt denies acute infectious symptoms. No indications for antibiotics at this time. (6) Anxiety Is this a current diagnosis for this admission?: Yes Plan: We will continue patient's home dose of Paxil. Now on scheduled Valium and as needed Ativan for withdrawal. Appreciate psychiatry's evaluation and recommendations. (7) Depression Is this a current diagnosis for this admission?: Yes Plan: We will continue the patient's home medications. Remaining plan as above. (8) Alcohol abuse Is this a current diagnosis for this admission?: Yes Plan: Plan as above. (9) Body mass index (BMI) of 40.1 to 44.9 in adult Is this a current diagnosis for this admission?: Yes - Time Time Spent with patient: 15-24 minutes Medications reviewed and adjusted accordingly: Yes Anticipated discharge: Home Within: within 24 hours
--- NOTE | 2017-02-15 12:10 | PDOC DISCHARGE SUMMARY ---
General - Admit/Disc Date/PCP Admission Date/Primary Care Provider: 02/10/17 10:47 RITA JACKSON MD Discharge Date: 02/15/17 - Discharge Diagnosis (1) Alcohol withdrawal Is this a current diagnosis for this admission?: Yes (2) Atrial fibrillation Is this a current diagnosis for this admission?: Yes (3) TIA (transient ischemic attack) Is this a current diagnosis for this admission?: Yes (4) HTN (hypertension) Is this a current diagnosis for this admission?: Yes (6) Anxiety Is this a current diagnosis for this admission?: Yes (7) Depression Is this a current diagnosis for this admission?: Yes (8) Alcohol abuse Is this a current diagnosis for this admission?: Yes (9) Body mass index (BMI) of 40.1 to 44.9 in adult Is this a current diagnosis for this admission?: Yes - Additional Information Resuscitation Status: Full Code Discharge Diet: As Tolerated Discharge Activity: Activity As Tolerated, Balance Activity w/Rest Prescriptions: Buspirone HCl [Buspar 15 mg Tablet] 1 tab PO BID #60 tab Diltiazem HCl [Cardizem 30 mg Tablet] 30 mg PO Q6 #90 tablet Divalproex Sodium [Depakote] 500 mg PO BID #60 tablet. Hydroxyzine Pamoate [Vistaril 25 mg Capsule] 25 mg PO Q8HP PRN #30 capsule PRN Reason: Anxiety Rivaroxaban [Xarelto 10 mg Tablet] 20 mg PO WSUPPER@1800 #30 tablet Home Medications: Atorvastatin Calcium [Lipitor 40 mg Tablet] 40 mg PO DAILY 02/09/17 Clonidine HCl [Catapres 0.1 mg Tablet] 0.1 mg PO NOON 02/09/17 Clonidine HCl [Catapres 0.1 mg Tablet] 0.1 mg PO QAM 02/09/17 Clonidine HCl [Catapres 0.1 mg Tablet] 0.2 mg PO QHS 02/09/17 Paroxetine HCl [Paxil] 30 mg PO DAILY 02/09/17 Buspirone HCl [Buspar 15 mg Tablet] 1 tab PO BID #60 tab 02/15/17 Diltiazem HCl [Cardizem 30 mg Tablet] 30 mg PO Q6 #90 tablet 02/15/17 Divalproex Sodium [Depakote] 500 mg PO BID #60 tablet. 02/15/17 Hydroxyzine Pamoate [Vistaril 25 mg Capsule] 25 mg PO Q8HP PRN #30 capsule 02/15 Rivaroxaban [Xarelto 10 mg Tablet] 20 mg PO WSUPPER@1800 #30 tablet 02/15/17 History of Present Illness History of Present Illness: SHUBHAM AQUINO is a 61 year old female a past medical history of hypertension, hyperlipidemia, TIA, prediabetes, anxiety who presented to the emergency department today with a complaint of right-sided weakness leading to multiple falls. She reports that she went to bed in her normal health last night and woke at approximately 2 AM. She states that upon waking she found that the right side of her face felt numb and that she had trouble ambulating to the related to right-sided weakness leading to a fall. She went back to sleep and woke again at approximately 6 AM noting that she continues to have right-sided weakness but again but to a fall while in the tub. She reports slight right shoulder discomfort with range of motion, denies other injuries from her fall. She denies hitting her head, LOC. As report paresthesias to her right hand and right lower leg, stating that she does have sensation that it is abnormal. Daughter reports to me that she was evaluated for a CVA approximately 4 years ago in our emergency department. The states that the patient became apneic while in the CT room and required intubation and was flown to [facility]. The daughter states that they were told that her related to alcohol abuse. The patient states that she is no longer drinking to that extent, but did have 4 beers last night. She states that this is more than her norm and that she no longer drinks on a daily basis. Admits to being under increased emotional stress as her son is deploying to [place] this week. She is referred to the hospitalist service for observational admission and CVA workup. Hospital Course Hospital Course: The patient was admitted with a complaint of right facial and extremity paresthesias with weakness resulting in multiple falls. CT of the head revealed chronic changes of atrophy and microvascular ischemia but no evidence of an acute stroke. Follow-up MRI showed evidence of an old right cerebellar infarct, multiple infarcts in the basal ganglia and left thalamus midline rayray and bifrontal/biparietal white matter that were all chronic in appearance. The carotid Dopplers did not show evidence of hemo-dynamically significant stenosis. Echocardiogram was clear of any thrombi with a normal ejection fraction. On admission day 2, the patient was noted to be in atrial fibrillation and developed headaches, confusion, anxiety, and visual hallucinations. She did admit to a history of alcoholism with previous delirium tremens with recent alcohol intake. She was placed on alcohol withdrawal protocols; her his symptoms were successfully managed with scheduled Valium and as needed Ativan which were slowly weaned over the following 3 days. Her atrial fibrillation was managed with diltiazem and Xarelto and she subsequently converted back into a normal sinus rhythm. The patient had the opportunity to meet with Social Work and Psychiatry services. On day of discharge, the patient is stable, alert and oriented 4, and interested in follow-up with Alcoholics Anonymous. She is discharged to home with prescriptions for diltiazem and Xarelto, as well as, Depakote, Buspar, and Vistaril per psychiatry's recommendations. She is instructed to follow-up with her primary care provider within 1 week. Physical Exam Vital Signs: Temp Pulse Resp BP Pulse Ox 97.8 F 71 18 148/87 H 93 02/15/17 07:35 02/15/17 07:35 02/15/17 07:35 02/15/17 07:35 02/15/17 07:35 Intake & Output 02/14/17 02/15/17 02/16/17 06:59 06:59 06:59 Intake Total 1871 800 Output Total 0 Balance 1871 800 Weight 111 kg 110.8 kg General appearance: PRESENT: no acute distress, obese, well-developed, well- nourished Head exam: PRESENT: atraumatic, normocephalic Eye exam: PRESENT: conjunctiva pink, EOMI, PERRLA. ABSENT: scleral icterus Ear exam: PRESENT: normal external ear exam Mouth exam: PRESENT: moist, tongue midline Neck exam: ABSENT: carotid bruit, JVD, lymphadenopathy, thyromegaly Respiratory exam: PRESENT: clear to auscultation hiren, symmetrical, unlabored. ABSENT: rales, rhonchi, wheezes Cardiovascular exam: PRESENT: RRR, +S1, +S2. ABSENT: diastolic murmur, rubs, systolic murmur Pulses: PRESENT: normal dorsalis pedis pul Vascular exam: PRESENT: normal capillary refill GI/Abdominal exam: PRESENT: normal bowel sounds, soft. ABSENT: distended, guarding, mass, organolmegaly, rebound, tenderness Rectal exam: PRESENT: deferred Extremities exam: PRESENT: full ROM. ABSENT: calf tenderness, clubbing, pedal edema Neurological exam: PRESENT: alert, awake, oriented to person, oriented to place , oriented to time, oriented to situation, CN II-XII grossly intact. ABSENT: motor sensory deficit Psychiatric exam: PRESENT: appropriate affect, normal mood. ABSENT: homicidal ideation, suicidal ideation Skin exam: PRESENT: dry, intact, warm. ABSENT: cyanosis, rash Results Laboratory Results: 02/11/17 06:05 02/11/17 06:05 02/10/17 02/10/17 15:03 15:03 Creatine Kinase 95 CK-MB (CK-2) 2.92 Troponin I 0.021 Impressions: Chest X-Ray 02/09/17 10:49 IMPRESSION: Linear atelectatic markings both lung bases. Chronic elevation right hemidiaphragm. Head CT 02/09/17 12:05 IMPRESSION: MILD CHRONIC CHANGES OF ATROPHY AND MICROVASCULAR ISCHEMIA. NO ABNORMAL AREAS OF ENHANCEMENT. WEDGE-SHAPED AREA OF DECREASED ATTENUATION IN THE RIGHT CEREBELLAR HEMISPHERE IS MOST LIKELY DUE TO AN OLD INFARCT. NO DEFINITE ACUTE FINDINGS. EVIDENCE OF ACUTE STROKE: NO. Head MRI 02/09/17 14:44 IMPRESSION: No acute findings Old right cerebellar infarct Multiple infarcts in the basal ganglia left thalamus midline rayray and bifrontal/ biparietal white matter, all chronic in appearance EVIDENCE OF ACUTE STROKE: NO. Carotid Doppler Study 02/10/17 00:00 IMPRESSION: NO HEMODYNAMICALLY SIGNIFICANT STENOSIS. Qualifiers PATEINT BEING DISCHARGED WITH ANY OF THE FOLLOWING DIAGNOSIS?: No
[2017-02-15 16:19] VITALS: BP 138/80
== END 2017-02-15 16:51 | disposition home or self-care (01) | DRG 897 ==
LOC: ER 10:26 → EH 14:46 → UNDOADMOB 14:46 → 3W 16:35 → EH 16:35 → 3W 02-10 10:47 → EH 02-10 10:47 → OBSVTOIN 02-10 10:47
PROVIDERS: ADMIT Internal Medicine; ATTEND Internal Medicine
PROC: 3E0234Z Introduction of Serum, Toxoid and Vaccine into Muscle, Percutaneous Approach (ICD-10-PCS; principal; 2017-02-15)
DX: F10.231 Alcohol dependence with withdrawal delirium (principal); Z68.41 Body mass index [BMI] 40.0-44.9, adult; G45.9 Transient cerebral ischemic attack, unspecified; R20.2 Paresthesia of skin; G31.2 Degeneration of nervous system due to alcohol; I48.91 Unspecified atrial fibrillation; I10 Essential (primary) hypertension; E78.00 Pure hypercholesterolemia, unspecified; D72.829 Elevated white blood cell count, unspecified; R29.810 Facial weakness; F41.8 Other specified anxiety disorders; Y90.9 Presence of alcohol in blood, level not specified; Z60.2 Problems related to living alone; Z23 Encounter for immunization; Z91.81 History of falling
CPT/HCPCS: 36415; 70450; 70460; 70553; 71046; 80048; 80053; 80061; 80076; 81001; 82140; 82550; 82553; 83036; 83735; 84443; 84484; 85025; 85027; 90686; 93005; 93010; 93306; 93880; 99285; A9577; G0378; G8978-GP; G8979-GP; G8987-GO; G8988-GO; G8989-GO; J1644; J2060; J2405; J3490; J7030; S0028